=== PATIENT | male | born 2000 | race Caucasian/White ===

== ENCOUNTER 2022-06-02 00:41 | Emergency (ER) | payer MEDICAID ==
[~2022-06-02] VITALS: Ht 177.8 cm; Wt 95.7 kg
[2022-06-02 02:19] VITALS: BP 129/81
[2022-06-02] MEDS ORDERED: ACETAMINOPHEN WITH CODEINE 300/30MG TABLET PO ONE (05:15)
[2022-06-02] MEDS ORDERED: T3 PO (07:46)
[2022-06-02] MEDS ORDERED: IBUP-2028 PO (07:46)
== END 2022-06-02 08:22 | disposition home or self-care (01) ==
LOC: ER 00:41
DX: M79.605 Pain in left leg (principal)
CPT/HCPCS: 73551; 73560; 99284; L1830